=== PATIENT | male | born 2000 | race Hispanic/Latino ===

== ENCOUNTER 2021-06-26 12:19 | Emergency (ER) | payer OTHER ==
--- OUTSIDE RECORDS SUMMARY | 2021-06-26 12:22 | XMS REPORT | Continuity of Care Document ---
:2000 Author Organization [facility] t Address [address] [place] [id number] Care Team Providers Name Role Phone WALKER Attending Clinician Unavailable Problems Condition Condition Condition Status Onset Resolution Last Treating Co mments Source Name Details Category Date Date Treatment Clinician Date Pain of Pain of Problem Active [facility] right right ity of forearm forearm [place] [facility] ans Contusion Contusion Problem Active [facility] vers of right of right ity of forearm, forearm, [place] initial initial Physici encounter encounter ans Closed Closed Problem Active [facility] fracture fracture ity of of right of right [place] forearm, forearm, [facility] i initial initial ans encounter encounter Allergies, Adverse Reactions, Alerts This patient has no known allergies or adverse reactions. Medications This patient has no known medications. Immunizations Ordered Filled Date Status Comments Source Immunization Name Immunization Name Gardasil 2013-08-14 Completed [facility] 00:00:00 [place] [facility] Suspension Influenza, 2012-09-04 Completed [facility] seasonal, 00:00:00 [place] [facility] injectable, preservative free Boostrix 5-2.5-18.5 2012-09-04 Completed [facility] of Intramuscular 00:00:00 [place] [facility] Suspension Meningococcal, 2012-09-04 Completed [facility] MCV4, unspecified 00:00:00 [place] [facility] conjugate formulation(groups A, C, Y and W-135) Varivax 1350 2008-08-24 Completed [place] [facility] f PFU/0.5ML 00:00:00 [place] [facility] Subcutaneous Injectable Influenza, 2008-08-24 Completed [facility] seasonal, 00:00:00 [place] [facility] injectable, preservative free hepatitis A 2006-01-03 Completed [facility] vaccine, 00:00:00 [place] [facility] pediatric/adolescen t dosage, 2 dose schedule Hib, Haemophilus 2005-10-26 Completed [facility] ty of influenzae type b 00:00:00 [place] [facility] vaccine, PRP-T conjugate DTaP, unspecified 2005-10-26 Completed [facility] ity of formulation 00:00:00 [place] [facility] Ipol Injection 2005-10-26 Completed [facility] Injectable 00:00:00 [place] [facility] Pneumo (Prevnar 7) 2005-10-26 Completed [facility] of 00:00:00 [place] [facility] M-M-R II 2005-10-26 Completed [facility] Subcutaneous 00:00:00 [place] [facility] Injectable hepatitis A 2005-06-15 Completed [facility] vaccine, 00:00:00 [place] [facility] pediatric/adolescen t dosage, 2 dose schedule Hib, Haemophilus 2003-08-10 Completed [facility] ty of influenzae type b 00:00:00 [place] [facility] vaccine, PRP-T conjugate DTaP, unspecified 2003-08-10 Completed [facility] ity of formulation 00:00:00 [place] [facility] Ipol Injection 2003-08-10 Completed [facility] Injectable 00:00:00 [place] [facility] M-M-R II 2003-08-10 Completed [facility] Subcutaneous 00:00:00 [place] [facility] Injectable Varivax 1350 2002-08-12 Completed [facility] o f PFU/0.5ML 00:00:00 [place] [facility] Subcutaneous Injectable Hepatitis B, 2002-05-13 Completed [facility] o f pediatric/adolescen 00:00:00 [place] [facility] t dosage Hepatitis B, 2002-01-29 Completed [facility] o f pediatric/adolescen 00:00:00 [place] [facility] t dosage Hib, Haemophilus 2002-01-29 Completed [facility]i ty of influenzae type b 00:00:00 [place] [facility] vaccine, PRP-T conjugate DTaP, unspecified 2002-01-29 Completed [facility] ity of formulation 00:00:00 [place] [facility] Pneumo (Prevnar 7) 2002-01-29 Completed [facility] of 00:00:00 [place] [facility] Hib, Haemophilus 2001 Completed [facility]i ty of influenzae type b 00:00:00 [place] [facility] vaccine, PRP-T conjugate DTaP, unspecified 2001 Completed [facility] ity of formulation 00:00:00 [place] [facility] Ipol Injection 2001 Completed [facility] Injectable 00:00:00 [place] [facility] Pneumo (Prevnar 7) 2001 Completed [facility] of 00:00:00 [place] [facility] Hepatitis B, 2001 Completed [facility] o f pediatric/adolescen 00:00:00 [place] [facility] t dosage Hib, Haemophilus 2001 Completed [facility]i ty of influenzae type b 00:00:00 [place] [facility] vaccine, PRP-T conjugate DTaP, unspecified 2001 Completed [facility] ity of formulation 00:00:00 [place] [facility] Ipol Injection 2001 Completed [facility] Injectable 00:00:00 [place] [facility] Hepatitis B, 2001 Completed [facility] o f pediatric/adolescen 00:00:00 [place] [facility] t dosage Ipol Injection Unknown Completed [facility] Injectable [place] [facility] M-M-R II Unknown Completed [facility] Subcutaneous [place] [facility] Injectable Vital Signs Vital Name Observation Time Observation Value Comments Source Height 2018-12-20 11:21:00 72 [in_us] Univers[facility] ty [facility] Weight 2018-12-20 11:21:00 145 [lb_av] [facility]i ty [facility] Body Mass Index 2018-12-20 11:21:00 19.67 kg/m2 [facility] Calculated Physicians Procedures Procedure Date / Time Performed Performing Clinician Sourc e MR Forearm wo 2018-12-20 00:00:00 [place] [facility] contrast [id number] Physicians Encounters Start End Encounter Admission Attending Care Care Encounter Source Date/Time Date/Time Type Type Clinicians Facility Department ID 2018-12-20 2018-12-20 Appointmen KEVIN WALKER [facility] [id number] Univers 11:00:00 11:00:00 RONNIE Pelayo, Orthopedic i ty of Shashank TRUJILLO Surgery - Alejandro Barriga [facility] Trace 1 ans Results This patient has no known results.
--- NOTE | 2021-06-26 13:32 | ER ---
Nurse's Notes [facility] Name: Bull Lua Jr Age: 20 yrs Sex: Male : 2000 Arrival Date: 06/26/2021 Time: 12:21 Bed Waiting Private MD: Diagnosis: Pain in left thigh;Strain of adductor muscle, fascia and tendon of left thigh Presentation: 06/26 12:30 Chief complaint: Patient states: L hamstring pain/ tightness that began while running ss during a soccer game. Coronavirus screen: Vaccine status: Patient reports being unvaccinated. Ebola Screen: Patient denies exposure to infectious person. Patient denies travel to an Ebola-affected area in the 21 days before illness onset. Initial Sepsis Screen: Does the patient meet any 2 criteria? No. Patient's initial sepsis screen is negative. Does the patient have a suspected source of infection? No. Patient's initial sepsis screen is negative. Risk Assessment: Do you want to hurt yourself or someone else? Patient reports no desire to harm self or others. Onset of symptoms was June 26, 2021. 12:30 Method Of Arrival: Ambulatory ss 12:30 Acuity: SAVANNAH 4 ss Historical: - Allergies: 12:31 No Known Allergies; ss - PSHx: 12:31 None; ss - Immunization history:: Adult Immunizations up to date. - Social history:: Smoking status: Patient denies any tobacco usage or history of. Screenin:29 Abuse screen: Denies threats or abuse. Denies injuries from another. Nutritional ss screening: No deficits noted. Tuberculosis screening: Never had TB. Fall Risk None identified. Assessment: 13:29 General: Appears in no apparent distress. comfortable, Behavior is calm, cooperative. ss Pain: Complains of pain in left hamstring Pain currently is 7 out of 10 on a pain scale. Quality of pain is described as crampy, tender. Neuro: Level of Consciousness is awake, alert, obeys commands, Oriented to person, place, time, situation. Cardiovascular: Capillary refill < 3 seconds is brisk in bilateral fingers. Respiratory: Airway is patent Respiratory effort is even, unlabored, Respiratory pattern is regular, symmetrical. GI: No signs and/or symptoms were reported involving the gastrointestinal system. Derm: Skin is intact, is healthy with good turgor, Skin is dry, Skin is pink, warm \T\ dry. normal. Musculoskeletal: Circulation, motion, and sensation intact. Range of motion: intact in all extremities, Swelling absent. Vital Signs: 12:30 BP 108 / 75; Pulse 84; Resp 16; Temp 97.7(TE); Pulse Ox 100% on R/A; Weight 83.91 kg; ss Height 6 ft. 0 in. (182.88 cm); Pain 6/10; 12:30 Body Mass Index 25.09 (83.91 kg, 182.88 cm) ss ED Course: 12:21 Patient arrived in ED. ds1 12:30 Triage completed. ss 12:31 Arm band placed on right wrist. ss 13:29 Patient has correct armband on for positive identification. Bed in low position. Call ss light in reach. 13:30 No provider procedures requiring assistance completed. Patient did not have IV access ss during this emergency room visit. 13:31 Tamy Sotomayor FNP-C is [facility]. kb 13:31 Gi Kunz MD is Attending Physician. kb 13:42 Carol Chang, KEVIN is Primary Nurse. ss Administered Medications: No medications were administered Outcome: 13:31 Discharge ordered by . kb 13:42 Discharged to home ambulatory, with family. ss 13:42 Condition: good 13:42 Discharge instructions given to patient, Instructed on discharge instructions, follow up and referral plans. medication usage, Demonstrated understanding of instructions, follow-up care, medications, Prescriptions given X 2. 13:42 Patient left the ED. ss Signatures: Tamy Sotomayor FNP-C [employer]-Sary Vitale ds1 Carol Chang RN RN ss
--- NOTE | 2021-06-26 13:32 | EDPHYS ---
Physician Documentation [facility] Name: Bull Lua Jr Age: 20 yrs Sex: Male : 2000 Arrival Date: 06/26/2021 Time: 12:21 Bed Waiting Private MD: ED Physician Gi Kunz HPI: 06/26 16:53 This 20 yrs old Male presents to ER via Ambulatory with complaints of Thigh kb Pain. 16:53 The patient presents with pain, tenderness. The complaints affect the left hamstring. kb Context: The problem was sustained at a sports field or court, resulted from playing sports, soccer, the patient can fully bear weight, the patient is able to ambulate. Onset: The symptoms/episode began/occurred just prior to arrival. Modifying factors: The symptoms are alleviated by nothing. the symptoms are aggravated by nothing. Associated signs and symptoms: The patient has no apparent associated signs or symptoms. Treatment prior to arrival includes: no previous treatment. Severity of symptoms: At their worst the symptoms were mild, moderate, in the emergency department the symptoms are unchanged. The patient has not experienced similar symptoms in the past. The patient has not recently seen a physician. Pt reports he was playing soccer and felt a pop in his hamstring. States he tried to stretch it out, but it is still painful so the software trainer told him to come to the er. Ambulates with steady gait. Historical: - Allergies: 12:31 No Known Allergies; ss - PSHx: 12:31 None; ss - Immunization history:: Adult Immunizations up to date. - Social history:: Smoking status: Patient denies any tobacco usage or history of. ROS: 16:52 Constitutional: Negative for fever, chills, and weight loss. kb 16:52 MS/extremity: Positive for pain, tenderness, of the left hamstring. 16:52 All other systems are negative. Exam: 16:52 Constitutional: This is a well developed, well nourished patient who is awake, alert, kb and in no acute distress. Head/Face: Normocephalic, atraumatic. ENT: Moist Mucous membranes Respiratory: Respirations even and unlabored. No increased work of breathing, no retractions or nasal flaring. Skin: Warm, dry with normal turgor. Normal color. Neuro: Awake and alert, GCS 15, oriented to person, place, time, and situation. Moves all extremities. Normal gait. Psych: Awake, alert, with orientation to person, place and time. Behavior, mood, and affect are within normal limits. 16:52 Musculoskeletal/extremity: Extremities: grossly normal except: noted in the left hamstring: pain, tenderness, ROM: intact in all extremities, Circulation is intact in all extremities. Sensation intact. Weight bearing: able to fully bear weight. Vital Signs: 12:30 BP 108 / 75; Pulse 84; Resp 16; Temp 97.7(TE); Pulse Ox 100% on R/A; Weight 83.91 kg; ss Height 6 ft. 0 in. (182.88 cm); Pain 6/10; 12:30 Body Mass Index 25.09 (83.91 kg, 182.88 cm) ss MDM: 13:31 Patient medically screened. kb 16:51 Data reviewed: vital signs, nurses notes. Data interpreted: Pulse oximetry: on room air kb is 100 %. Interpretation: normal. Counseling: I had a detailed discussion with the patient and/or guardian regarding: the historical points, exam findings, and any diagnostic results supporting the discharge/admit diagnosis, the need for outpatient follow up, a orthopedic surgeon, to return to the emergency department if symptoms worsen or persist or if there are any questions or concerns that arise at home. Administered Medications: No medications were administered Disposition Summary: 06/26/21 13:31 Discharge Ordered Location: Home kb Condition: Stable kb Diagnosis - Pain in left thigh kb - Strain of adductor muscle, fascia and tendon of left thigh kb Followup: kb - With: Emergency Department - When: As needed - Reason: Worsening of condition Followup: kb - With: Private Physician - When: 2 - 3 days - Reason: Recheck today's complaints, Continuance of care, Re-evaluation by your physician Discharge Instructions: - Discharge Summary Sheet kb - Hamstring Strain kb Forms: - Medication Reconciliation Form kb - Work release form kb - Thank You Letter kb - Antibiotic Education kb - Prescription Opioid Use kb Prescriptions: - Ibuprofen 800 mg Oral Tablet - take 1 tablet by ORAL route every 8 hours As needed take with food; 30 tablet; kb Refills: 0, Product Selection Permitted - Cyclobenzaprine 10 mg Oral Tablet - take 1 tablet by ORAL route every 8 hours As needed; 21 tablet; Refills: 0, kb Product Selection Permitted Addendum: 06/28/2021 19:10 Co-signature as Attending Physician, Gi Kunz MD. m a2 Signatures: Tamy Sotomayor FNP-C FNP-Ckb Smirch, Shelby, RN RN Gi Kunz MD MD ma2
[2021-06-26 13:51] VITALS: BP 108/75; TEMP 97.7; O2SAT 100
== END 2021-06-26 13:42 | disposition home or self-care (01) ==
LOC: ER 12:19
DX: S76.212A Strain of adductor muscle, fascia and tendon of left thigh, initial encounter (principal); Y93.66 Activity, soccer
CPT/HCPCS: 99282